=== PATIENT | male | born 1970 | race Caucasian/White ===

== ENCOUNTER 2016-03-24 10:52 | Emergency (ER) | payer OTHER ==
--- NOTE | 2016-03-24 11:59 | Emergency Department Record ---
History of Present Illness - General Chief Complaint: Abdominal Pain Stated Complaint: ABD PAIN Time Seen by Provider: 03/24/16 11:54 Source: Patient, Family Mode of Arrival: Ambulatory Limitations: No limitations - History of Present Illness Initial Comments: 45 yo male presents with left sided abdominal pain that started this morning. The pain is sharp. No vomiting but he is nauseated. No fever. No rash. He was admitted February 21 for diverticulitis in an [place] hospital. He was inpatient for several days and improved on antibiotics. He was back to his baseline. No surgery. PCP is at the [facility]. MD Complaint: Abdominal pain -: Hour(s) Location: L Flank, LUQ, LLQ Radiation: LUQ, LLQ Migration to: L Flank, LUQ, LLQ Severity: Severe Quality: Aching, Sharp Consistency: Constant Improves With: Nothing Worsens With: Movement Associated Symptoms: Anorexia - Related Data Home Medications Medication Instructions Recorded Confirmed Last Taken No Home Med [NO HOME MEDS] 03/24/16 03/24/16 Unknown Allergies Allergy/AdvReac Type Severity Reaction Status Date / Time Sulfa (Sulfonamide Allergy Unknown unknown-as Verified 03/24/16 11:48 Antibiotics) a child Review of Systems Constitutional: Denies: Chills, Fever, Malaise, Night sweats, Weakness Eyes: Denies: Eye discharge, Eye pain, Photophobia, Vision change ENT: Denies: Congestion, Throat pain Respiratory: Denies: Cough, Dyspnea, Hemoptysis, Stridor, Wheezes Cardiovascular: Denies: Chest pain, Palpitations, Syncope Endocrine: Denies: Fatigue Gastrointestinal: Reports: Abdominal pain, Nausea. Denies: Constipation, Diarrhea, Hematochezia, Melena, Vomiting Genitourinary: Denies: Dysuria, Frequency, Hematuria Musculoskeletal: Denies: Arthralgia, Back pain, Joint swelling, Myalgia Skin: Denies: Bruising, Change in color, Rash Neurological: Denies: Confusion, Headache Psychiatric: Denies: Anxiety Hematological/Lymphatic: Denies: Easy bleeding, Easy bruising Past Medical History - SOCIAL HISTORY Smoking Status: Current every day smoker Alcohol Use: None Drug Use: None - RESPIRATORY Hx Respiratory Disorders: No - CARDIOVASCULAR Hx Cardio Disorders: No - NEURO Hx Neuro Disorders: No - GI Hx GI Disorders: Yes Hx Diverticulitis: Yes - Hx Genitourinary Disorders: No - ENDOCRINE Hx Endocrine Disorders: No - MUSCULOSKELETAL Hx Musculoskeletal Disorders: Yes Hx Back Injury: Yes - PSYCH Hx Psych Problems: No - HEMATOLOGY/ONCOLOGY Hx Hematology/Oncology Disorders: No Family Medical History Any Significant Family History?: No Physical Exam - General General Appearance: Alert, Oriented x3, Cooperative, No acute distress Limitations: No limitations - Head Head exam: Atraumatic, Normocephalic, Normal inspection - Eye Eye exam: Normal appearance, PERRL. negative: Conjunctival injection, Scleral icterus - ENT ENT exam: Normal exam, Mucous membranes moist Ear exam: Normal external inspection Nasal Exam: Normal inspection Mouth exam: Normal external inspection Teeth exam: Normal inspection Throat exam: Normal inspection - Neck Neck exam: Normal inspection, Full ROM. negative: Tenderness - Respiratory Respiratory exam: Normal lung sounds bilaterally. negative: Respiratory distress - Cardiovascular Cardiovascular Exam: Regular rate, Normal rhythm, Normal heart sounds - GI/Abdominal GI/Abdominal exam: Soft, Tenderness. negative: Normal bowel sounds, Distended, Rebound, Rigid - Rectal Rectal exam: Deferred - exam: Deferred - Extremities Extremities exam: Normal inspection, Full ROM, Normal capillary refill. negative: Pedal edema, Tenderness - Back Back exam: Reports: Normal inspection, CVA tenderness (L), Full ROM. Denies: Muscle spasm, Rash noted, Tenderness - Neurological Neurological exam: Alert, Normal gait, Oriented X3 - Psychiatric Psychiatric exam: Normal affect, Normal mood. negative: Agitated, Anxious - Skin Skin exam: Dry, Intact, Normal color, Warm Course - Reevaluation(s) Reevaluation #1: The labs were reviewed No acute changes of the CBC,CMP,Lipase CT is pending. 03/24/16 13:56 Reevaluation #2: CT scan was reviewed. there is an inflammatorhy process in the left mid and anterior abdomen in the area of small bowel with some changes of caliber, partial obstruction not ruled out. No FA or abscess. Small amount of free fluid. Will transfer to [facility] for consultation with specialist 03/24/16 14:41 Reevaluation #3: I SW Dr Ibrahim He will accept at [facility] [place] [facility] and admit to himself 03/24/16 14:49 Medical Decision Making - Lab Data Result diagrams: 03/24/16 12:00 03/24/16 12:00 Disposition Disposition: Transfer Clinical Impression: Partial bowel obstruction Abdominal pain Qualifiers: Abdominal location: left upper quadrant Qualified Code(s): R10.12 - Left upper quadrant pain Disposition: Acute Care Hospital Transfer Transfer To: [facility] [place] Reason For Transfer: abdominal pain abnormal CT Accepting Physician: Dr Ibrahim Time Discussed w/Accepting Physician: 14:49 Condition: (2) Stable Forms: Patient Portal Access Time of Disposition: 14:49
[2016-03-24 12:09] LABS: BASO % 0.3 % (0-6); EOS % 4.9 % (0-6); GRAN % 53.8 % (47-80); HEMATOCRIT 44.9 % (42.0-52.0); HEMOGLOBIN 16.2 gm/dl (14.0-18.0); LYMPH % 33.2 % (16-45); MEAN CELL VOLUME 81.3 fl (81-97); MEAN CORPUSCULAR HEMOGLOBIN 29.3 pg (27-33); MEAN CORPUSCULAR HGB CONC 36.1 g/dl (32-36); MEAN PLATELET VOLUME 10.1 fl (7.4-10.4); MONO % 7.8 % (0-9); PLATELET COUNT 183 K/uL (130-400); RED BLOOD COUNT 5.52 M/uL (4.40-5.70); RED CELL DISTRIBUTION WIDTH 13.7 % (11.5-14.5); WHITE BLOOD COUNT W/O DIFF 6.3 K/uL (4.2-12.2)
[2016-03-24] MEDS: HYDROMORPHONE HCL 1 MG/ML CPJ IVP ONE (12:10)
[2016-03-24] MEDS: ONDANSETRON HCL IV 4 MG/2 ML VIAL IV ONE (12:10)
[2016-03-24] MEDS: 0.9 % SODIUM CHLORIDE 1,000 ML BAG IV ONE ×2 (12:10→15:04)
[2016-03-24 12:20] LABS: ALBUMIN 4.8 gm/dL (3.5-5.0); ALKALINE PHOSPHATASE 102 U/L (38-126); ALT/SGPT 53 U/L (21-72); ANION GAP 11.9 (7-16); AST/SGOT 42 U/L (17-59); BILIRUBIN,TOTAL 0.63 mg/dL (0.2-1.3); BLOOD UREA NITROGEN 7 mg/dL (9-20); CARBON DIOXIDE 19.1 mmol/L (22-30); CREATININE 0.7 mg/dL (0.66-1.25); EST GLOMERULAR FILTRATION RATE > 60 ml/min; GLUCOSE,RANDOM 89 mg/dL (70-110); LIPASE 48 U/L (23-300)
[2016-03-24] MEDS: FENTANYL PF 100MCG/2ML VIAL IVP ONE ×2 (14:08→15:05)
--- NOTE | 2016-03-27 16:11 | CT SCAN REPORT ---
DATE: 03/24/2016. EXAM: CT OF THE ABDOMEN AND PELVIS. HISTORY: Sudden onset of sharp abdominal pain. Left lower quadrant pain. TECHNIQUE: CT of the abdomen and pelvis is performed following intravenous and oral contrast administration. A total of 100 mL of Omnipaque 300 contrast is utilized for this examination. COMPARISON: None. FINDINGS: There are two small nodules in the lower left lung. These are best seen on image number 9 of 134. Both measure about 3.0 mm in size. One or two other tiny nodules in the lower left lung may be present as well. The lung bases otherwise are unremarkable. Two or three hypodense lesions are seen in the upper aspect of the liver which are too small to definitively assess. Additional lesion is likely present in the lower medial liver 4.0 mm in size. These are too small to assess with certainty but probably represent cysts. The liver is otherwise unremarkable. The spleen is unremarkable. No pancreatic mass or inflammatory change identified. The bile ducts are not dilated. There are no calcified gallstones. No adrenal lesion. There is bilateral renal function. No renal mass or hydronephrosis. No aortic aneurysm. No periaortic mass or adenopathy. There is a retro-aortic left renal vein. This is a normal variation. There are some inflammatory changes identified in the anterior left mid and lower abdomen. The etiology is uncertain, but these appear to coalesce around the small bowel loops in this region. Some fluid is probably present in the mesentery at this level. There are mildly dilated loops of small bowel in the right abdomen up to 3.3 cm in size. There is a caliber change in the small bowel in the inflamed area in the left abdomen. The appendix is unremarkable. The colon is not distended. There is stool throughout the colon. There is diverticulosis without obvious diverticulitis. There is a small amount of free fluid in the pelvis. No abscess or free air identified. IMPRESSION: 1. ABNORMAL APPARENT INFLAMMATORY PROCESS IN THE LEFT LOWER ABDOMEN WHICH APPEARS CENTERED AROUND LOOPS OF SMALL BOWEL. THE ETIOLOGY IS UNCERTAIN. THERE IS A CALIBER CHANGE IN THE SMALL BOWEL AND SOME ELEMENT OF OBSTRUCTION CANNOT BE EXCLUDED. THERE IS SOME FLUID IDENTIFIED IN THE MESENTERY AND PELVIS. THE ETIOLOGY IS UNCERTAIN. INFLAMMATORY OR INFECTIOUS PROCESS CANNOT BE EXCLUDED. 2. NO DEFINITE EVIDENCE FOR DIVERTICULOSIS. 3. UNREMARKABLE APPENDIX. JOB NUMBER: [id number] [facility]
== END 2016-03-24 16:10 | disposition short-term general hospital (02) ==
LOC: ER 10:52
DX: K56.69 Other intestinal obstruction (principal); R10.12 Left upper quadrant pain; R11.0 Nausea
CPT/HCPCS: 99285 ×2; 96376; 96374; 96375; 83690; 85025; 80076; 80048; 74177; Q9967; J2405; J3010; J1170; J7030

== ENCOUNTER 2017-04-19 10:45 | Emergency (ER) | payer BC, OTHER ==
[2017-04-19 11:15] LABS: INFLUENZA A NEGATIVE (NEGATIVE); INFLUENZA B NEGATIVE (NEGATIVE)
--- NOTE | 2017-04-19 12:51 | Emergency Department Record ---
History of Present Illness - General Chief Complaint: Cough Stated Complaint: COUGH Time Seen by Provider: 04/19/17 11:27 Source: Patient Mode of Arrival: Ambulatory Limitations: No limitations - History of Present Illness Initial Comments: pt has been having a cough for 3 days and ear fullness MD Complaint: Cough, Nasal congestion Onset/Timin -: Days(s) Severity: Moderate Severity scale (1-10): 5 Consistency: Constant Associated Symptoms: Cough, Nasal congestion Treatments Prior to Arrival: None - Related Data Previous Rx's Medication Instructions Recorded Benzonatate [Tessalon] 1 cap PO Q8H PRN #14 cap 04/19/17 Allergies Allergy/AdvReac Type Severity Reaction Status Date / Time Sulfa (Sulfonamide Allergy Unknown unknown-as Verified 04/19/17 10:59 Antibiotics) a child Travel Screening - Travel/Exposure Within Last 30 Days Have you traveled within the last 30 days?: No - Travel/Exposure Within Last Year Have you traveled outside the [place] in the last year?: No - Additonal Travel Details Have you been exposed to anyone with a communicable illness?: No - Travel Symptoms Symptom Screening: None Review of Systems Reviewed: No additional complaints except as noted below Constitutional: Reports: As per HPI. Denies: Chills, Fever, Malaise, Night sweats, Weakness, Weight change Eyes: Reports: As per HPI. Denies: Eye discharge, Eye pain, Photophobia, Vision change ENT: Reports: As per HPI. Denies: Congestion, Dental pain, Ear pain, Epistaxis , Hearing loss, Throat pain Respiratory: Reports: As per HPI. Denies: Cough, Dyspnea, Hemoptysis, Stridor, Wheezes Cardiovascular: Reports: As per HPI. Denies: Arrhythmia, Chest pain, Dyspnea on exertion, Edema, Murmurs, Orthopnea, Palpitations, Paroxysmal nocturnal dyspnea, Rheumatic Fever, Syncope Endocrine: Reports: As per HPI. Denies: Fatigue, Heat or cold intolerance, Polydipsia, Polyuria Gastrointestinal: Reports: As per HPI. Denies: Abdominal pain, Constipation, Diarrhea, Hematemesis, Hematochezia, Melena, Nausea, Vomiting Genitourinary: Reports: As per HPI. Denies: Dysuria, Frequency, Hematuria, Incontinence, Retention, Testicular pain, Testicular mass, Urgency Musculoskeletal: Reports: As per HPI. Denies: Arthralgia, Back pain, Gout, Joint swelling, Myalgia, Neck pain Skin: Reports: As per HPI. Denies: Bruising, Change in color, Change in hair/ nails, Lesions, Pruritus, Rash Neurological: Reports: As per HPI. Denies: Abnormal gait, Confusion, Headache, Numbness, Paresthesias, Seizure, Tingling, Tremors, Vertigo, Weakness Psychiatric: Reports: As per HPI. Denies: Anxiety, Auditory hallucinations, Depression, Homicidal thoughts, Suicidal thoughts, Visual hallucinations Hematological/Lymphatic: Reports: As per HPI. Denies: Anemia, Blood Clots, Easy bleeding, Easy bruising, Swollen glands Past Medical History - SOCIAL HISTORY Smoking Status: Current every day smoker Alcohol Use: None Drug Use: None - RESPIRATORY Hx Respiratory Disorders: No - CARDIOVASCULAR Hx Cardio Disorders: No - NEURO Hx Neuro Disorders: No - GI Hx GI Disorders: Yes Hx Diverticulitis: Yes - Hx Genitourinary Disorders: No - ENDOCRINE Hx Endocrine Disorders: No - MUSCULOSKELETAL Hx Musculoskeletal Disorders: Yes Hx Back Injury: Yes - PSYCH Hx Psych Problems: No - HEMATOLOGY/ONCOLOGY Hx Hematology/Oncology Disorders: No Family Medical History Any Significant Family History?: Yes Physical Exam - General General Appearance: Alert, Oriented x3, Cooperative, Mild distress - Head Head exam: Normal inspection - Eye Eye exam: Normal appearance, PERRL, EOMI Pupils: Normal accommodation - ENT ENT exam: Normal exam, Mucous membranes moist, Normal external ear exam, Normal orophraynx, TM's normal bilaterally Ear exam: Normal external inspection. negative: External canal tenderness Nasal Exam: Normal inspection. negative: Discharge, Sinus tenderness Mouth exam: Normal external inspection, Tongue normal Teeth exam: Normal inspection. negative: Dental caries Throat exam: Normal inspection. negative: Tonsillar erythema, Tonsillar exudate - Neck Neck exam: Normal inspection, Full ROM. negative: Tenderness - Respiratory Respiratory exam: Normal lung sounds bilaterally. negative: Respiratory distress - Cardiovascular Cardiovascular Exam: Regular rate, Normal rhythm, Normal heart sounds - GI/Abdominal GI/Abdominal exam: Soft, Normal bowel sounds. negative: Tenderness - Rectal Rectal exam: Deferred - exam: Deferred - Extremities Extremities exam: Normal inspection, Full ROM, Normal capillary refill. negative: Tenderness - Back Back exam: Reports: Normal inspection, Full ROM. Denies: Muscle spasm, Rash noted, Tenderness - Neurological Neurological exam: Alert, CN II-XII intact, Normal gait, Oriented X3 - Psychiatric Psychiatric exam: Normal affect, Normal mood - Skin Skin exam: Dry, Intact, Normal color, Warm Course Vital Signs 04/19/17 10:54 Temperature 98.8 F Pulse Rate 90 Respiratory 22 Rate Blood Pressure 140/90 Pulse Ox 98 Medical Decision Making - Lab Data Lab Results 04/19/17 Range/Units 11:00 Influenza Type A Ag Negative (NEGATIVE) Influenza Type B Ag Negative (NEGATIVE) Disposition Disposition: Discharge Clinical Impression: Viral syndrome Disposition: Home, Self-Care Condition: (1) Good Instructions: Viral Syndrome (ED) Additional Instructions: follow up with family doctor. return sooner if worse. push fluids Prescriptions: Benzonatate [Tessalon] 1 cap PO Q8H PRN #14 cap PRN Reason: Cough Forms: Patient Portal Access, Return to Work/School Quality - Quality Measures Quality Measures: N/A - Blood Pressure Screening Does Patient Have Any of the Following: No Blood Pressure Classification: Hypertensive Reading Systolic Measurement: 140 Diastolic Measurement: 90 Screening for High Blood Pressure: < First Hypertensive BP, F/U Documented > [ [id number]] First Hypertensive Follow-up Interventions: Follow-up with rescreen GT 1 day and LT 4 weeks.
--- NOTE | 2017-04-20 08:11 | RADIOLOGY REPORT ---
EXAM: CHEST, TWO VIEWS HISTORY: PATIENT HAS A COUGH TIMES THREE DAYS. TECHNIQUE: Two views of the chest are provided without comparison studies. FINDINGS: The cardiomediastinal silhouette is within normal limits for size and contour. The seymour appear unremarkable. Dextroconvex scoliosis of the thoracic spine is noted. There is no radiographic evidence of a focal infiltrate, pleural effusion or pneumothorax. IMPRESSION: 1. NO RADIOGRAPHIC EVIDENCE OF AN ACUTE INTRATHORACIC PROCESS. 2. DEXTROCONVEX SCOLIOSIS OF THE THORACIC SPINE. J[facility]BER: [id number] [facility]
== END 2017-04-19 13:02 | disposition home or self-care (01) ==
LOC: ER 10:45
DX: B34.9 Viral infection, unspecified (principal); R05 Cough; F17.210 Nicotine dependence, cigarettes, uncomplicated
CPT/HCPCS: 71046; 87400; 99283